=== PATIENT | female | born 1965 | race Caucasian/White ===

== ENCOUNTER → 2016-10-13 | Outpatient (CLI) | payer BC ==
--- NOTE | 2016-10-13 12:41 | DI ---
RIGHT ANKLE, 10/13/2016 10:44 AM: Clinical History: Stiffness of the right ankle joint. Status post ORIF for a bimalleolar fracture. Previous Exam: 02/29/2016; 03/07/2016; 03/24/2016; 04/18/2016; 05/16/2016; and 06/10/2016. 3 views are submitted. The patient is status post ORIF of a fracture of the medial malleolus and the fracture site has healed. There is a distal fibular fracture that although there is still a fracture lucency present, there is extensive callus formation bridging the fracture site indicating it is heal ed. There is a defect in the distal fibula and tibia corresponding to previous placement of a syndesm otic screw. There is mild to moderate narrowing of the joint space without evidence of an osteochondr al defect. A small anterior joint effusion is present. Readin. Status post ORIF of the fracture of the medial malleolus with a fracture of the distal fibula. Guillermo th fractures have healed with anatomic alignment and position. 2. There is a small joint effusion anteriorly and there is mild to moderate narrowing of the joint s pace without evidence of an osteochondral defect.
== END ==
LOC: ORTHO 09:29
PROVIDERS: ATTEND Orthopaedic Surgery
DX: M25.572 Pain in left ankle and joints of left foot (principal); M25.671 Stiffness of right ankle, not elsewhere classified; M25.471 Effusion, right ankle; Z98.890 Other specified postprocedural states
CPT/HCPCS: 73610

== ENCOUNTER → 2016-12-02 | Outpatient (CLI) | payer BC ==
--- NOTE | 2016-12-02 15:08 | DI ---
DIAGNOSTIC MAMMOGRAMS, 12/02/2016 1:54 PM: Clinical History: Palpable lump in the left breast. Prior Exam: None at this facility. The patient indicated that she has had a prior mammogram in [facility] [place], [place]. We have requested the prior study. A supplemental report will be issued upon receipt of that prior exam. Routine digital MLO and CC 2-D images of each breast are supplemented with digital tomosynthesis scan s of the left breast. C-View images are obtained in the same projections as in the screening exam. C AD review is also performed. Breast tissue density is rated as having scattered areas of fibroglandular breast tissue. In the left breast in the upper inner quadrant close to the 9:00 position is a 25 mm multilobulated and spiculat ed high density mass. Faint calcifications are visible within the lesion. There is no mass of the rig ht breast. No other abnormal calcifications are noted. The skin contours, nipples, and lower axillary regions are also normal. Follow Up: Breast ultrasound is pending. BIRADS Category: 4: Suspicious finding - biopsy should be considered. The screening Views of the righ t breast are negative. Assessment: Suspicious finding. Biopsy should be considered.
--- NOTE | 2016-12-02 16:23 | DI ---
LEFT BREAST ULTRASOUND, 12/02/2016 1:54 PM: Clinical History: Left breast lump. Abnormal mammogram confirming presence of a 26 mm high density mu ltilobulated and spiculated lesion in the upper inner quadrant close to the 9:00 position. Scans are performed by the technologist and myself through all four quadrants of the left breast with the high resolution linear array probe. Color Doppler ultrasound was also performed. There is an inhomogeneous hypoechoic and relatively well demarcated multilobulated mass measuring up to 26 mm in greatest dimension. Some spiculations are present. Along the medial margin of the lesion is a second smaller nodular lesion that measures 5 mm in diameter and probably is directly connected to the main lesion rather than representing a separate lesion. Color Doppler ultrasound confirms vasc ularity within the lesion. Follow Up: Surgical consultation with needle core biopsy of the lesion is recommended. BIRADS Category: 4: Suspicious finding - biopsy should be considered. Assessment: Suspicious finding. Biopsy should be considered.
--- NOTE | 2016-12-03 17:29 | DI ---
See the diagnostic mammogram report dated 12/02/2016 for description of the digital breast tomosynthes is phase of this exam.
== END ==
LOC: US 13:40
PROVIDERS: ATTEND Student in an Organized Health Care Education/Training Program
DX: N63 Unspecified lump in breast (principal)
CPT/HCPCS: 76641; G0204; G0279

== ENCOUNTER → 2016-12-03 | Day surgery (SDC) | payer BC ==
--- NOTE | 2016-12-03 13:33 | GEN.OPNOTE ---
Operative Note Surgery Date: 12/03/16 Preoperative Diagnosis: Left breast mass. Postoperative Diagnosis: Left breast mass. Procedure: Percutaneous core biopsy of left breast mass using ultrasound guidance. Surgeon: Josué Darnell MD Anesthesia Type: Local (1% plain lidocaine.) Estimated Blood Loss (mL): 2 Fluids: No fluids given. Pathology: 2 core biopsies sent for pathologic analysis. Indications: Worrisome left breast mass. Findings: Left breast mass. Complications: None. Operative Summary: I met with the patient and the radiologist in the ultrasound suite. The lesion was initially localized. The chest wall was prepped with ChloraPrep. The skin was infiltrated with 1% Xylocaine with epinephrine. The tract was infiltrated with local anesthetic as well. An 11 blade was used to make a small skin incision. I chose a 14-gauge core biopsy needle. This was advanced to the lesion. The device was closed and fired. I obtained 2 excellent cores. We could see the needle passed through the suspect lesion. The radiologist held pressure for 10 minutes. Follow-up ultrasound showed no hematoma formation. The chest wall was cleansed. A Band-Aid was placed. I personally prepared the specimen and the paperwork. I delivered the specimen to the lab. Patient tolerated the procedure well without complication. She will be discharged home. She has been asked to call the office and schedule an appointment for early next week.
--- NOTE | 2016-12-03 17:22 | DI ---
ULTRASOUND GUIDED LEFT BREAST NEEDLE CORE BIOPSY, 12/03/2016 12:13 PM Clinical History: Abnormal diagnostic mammogram and breast ultrasound showing a 26 mm left breast mas s. Previous Exam: 12/02/2016. Operating Surgeon: Dr. Josué Darnell. Weld Lay Out Worker: Dr. Scruggs. Informed signed consent was obtained prior to the procedure which was performed in the ultrasound sigrid te. A "time out" session was performed to verify the patient's name and date of prior to initia ting this procedure. The left breast was prepped with ChloraPrep with Tint. Sterile ultrasound gel wa s used as the acoustical coupling agent. 1% lidocaine without epinephrine was used for intradermal an d subcutaneous local anesthesia. A small skin incision was made with a #11 Bard-Oj blade. 2 passe s were performed using a 14 gauge needle and the DeliRadio-Oj biopsy gun. Both attempts resulted in go od core specimens being obtained. The biopsy specimens were delivered by the surgeon to the lab for d elivery to pathology. Hemostasis was achieved with direct compression for 11 minutes. Post biopsy rochelle ges show no evidence of post biopsy bleeding. A band aid dressing was applied and the patient was dis charged from the Radiology Department in stable, unchanged condition. The patient was advised to watc h for signs of a developing hematoma (including but not limited to swelling and pain in the breast) a s well as for signs of an infection (including but not limited to redness, swelling, fever). She was instructed to either contact the surgeon directly or to report to the Emergency Room immediately if p roblems arose. Reading: Successful and uncomplicated needle core biopsy of the left breast lesion as above.
== END | disposition home or self-care (01) ==
LOC: SDSC 11:58
PROVIDERS: ATTEND Surgery
DX: N63 Unspecified lump in breast (principal); C50.912 Malignant neoplasm of unspecified site of left female breast
CPT/HCPCS: 19083; 76942

== ENCOUNTER 2016-12-12 07:32 | Day surgery (SDC) | payer BC ==
[~2016-12-12 07:32] MED LIST: LIDOCAINE W/ SODIUM BICARB 0.5 ML SYR ONE; Lactated Ringers 1,000 ML PRIMARY IV ONE; ceFAZolin Inj 2gm (Premix) 50 ML IV ONE
[2016-12-12] MEDS ORDERED: PROPOFOL 10 MG/1 ML (200 MG/20 ML) VIAL IV ONE (07:35)
[2016-12-12] MEDS ORDERED: LIDOCAINE MPF 2% - 5 ML (20 MG/1 ML) IV ONE (07:35)
[2016-12-12] MEDS ORDERED: MIDAZOLAM 5 MG/1 ML IVP ONE (07:35)
[2016-12-12] MEDS ORDERED: fentaNYL Inj 250 MCG/5 ML VIAL IVP ONE (07:35)
[2016-12-12] MEDS ORDERED: fentaNYL Inj 100 MCG/2 ML VIAL ONE (08:37)
[2016-12-12] MEDS ORDERED: LIDOCAINE W/ SODIUM BICARB 0.5 ML SYR SUBD ONE (08:52)
[2016-12-12] MEDS ORDERED: BUPIVACAINE 0.5% W/ EPI - 10 ML VIAL ONE ×2 (10:01→11:52)
[2016-12-12] MEDS ORDERED: METHYLENE BLUE 10 MG/1 ML - 1 ML ONE (10:15)
[2016-12-12] MEDS ORDERED: DEXAMETHASONE PF 10 MG/1 ML VIAL ONE (10:22)
[2016-12-12] MEDS ORDERED: ONDANSETRON 4 MG/2 ML VIAL ONE (10:22)
[2016-12-12] MEDS ORDERED: Lactated Ringers 1,000 ML PRIMARY IV ONE (10:27)
[2016-12-12] MEDS ORDERED: Sodium Chloride 0.9% vial 10 ML ONE (10:40)
[2016-12-12] MEDS ORDERED: KETAMINE 100 MG/1 ML - 5 ML IV ONE (10:55)
[2016-12-12] MEDS ORDERED: NORMAL SALINE 10 ML SYRINGE FLUSH IVP PRN ×2 (11:12→13:22)
[2016-12-12] MEDS ORDERED: Prochlorperazine Edisylate Inj 10mg/2ml vial IVP PRN (11:12)
[2016-12-12] MEDS ORDERED: HYDROmorphone 2 MG/1 ML IVP PRN (11:12)
[2016-12-12] MEDS ORDERED: MIDAZOLAM HCL 50 MG/10 ML VIAL IVP PRN (11:12)
[2016-12-12] MEDS ORDERED: Lactated Ringers 1,000 ML PRIMARY IV SCH ×2 (11:15→13:30)
[2016-12-12] MEDS ORDERED: HYDROmorphone 2 MG/1 ML IVP ONE (11:51)
[2016-12-12] MEDS ORDERED: KETOROLAC 30 MG/1 ML VIAL IVP ONE (12:06)
[2016-12-12] MEDS: HYDROmorphone 2 MG/1 ML ONE ×2 (12:45→13:05)
--- NOTE | 2016-12-12 12:53 | GEN.OPNOTE ---
Operative Note Surgery Date: 12/12/16 Preoperative Diagnosis: Left breast cancer. Postoperative Diagnosis: Left breast cancer. Procedure: #1 partial mastectomy. #2 excision of deep axillary lymph nodes. # 3 injection procedure for lymph node identification-methylene blue. Surgeon: Josué Darnell MD Anesthesia Provider: Esteban Larkin CRNA Anesthesia Type: General Estimated Blood Loss (mL): 5 Fluids: 1400 mL of crystalloid. 2 g of IV Ancef at the start of the procedure. 30 mg of IV Toradol at the end of the procedure. Pathology: Specimens to pathology included #1 a sentinel node, #2 other axillary lymph nodes, #3 lumpectomy specimen, #4 inferior margin from the lumpectomy cavity. Indications: Newly diagnosed breast cancer. Options were discussed. Patient chose breast conservation therapy. Findings: Independence node identified both with the isotope and the methylene blue dye. Breast cancer was palpable. Surgically clear margins of excision but the inferior margin was close so I opted to take more of the cavity wall. Complications: None. Operative Summary: The patient was taken to the operating suite and placed on the operating table in the supine position. Following the induction of general anesthetic the left arm was placed on an arm board and the left chest wall, axilla and proximal arm were prepped and draped in a sterile fashion. A surgical timeout was done. I injected some methylene blue in the periareolar area and massaged the breast. An axillary incision was made over the area of maximum counts. The counts in the axilla were not greater then 10% of the injection site count initially. The dissection was carried down through the clavipectoral fascial and the axillary space was entered. The probe was utilized to localize the node. It was also identified with the methylene blue. In vivo counts were greater than 10% of the injection site counts as were ex vivo counts. The sentinel node was removed. Several other lymph nodes next to the sentinel node were also removed. Those contents were labeled additional left axillary contents. Clips were used to secure the small vessels and the lymphatics as the lymph nodes were removed. The wound was irrigated. Hemostasis was assured. Final irrigation was 1/2% Marcaine with epinephrine which is allowed to sit the wound for several minutes and then removed. The deep dermis was closed with inverted interrupted 3-0 Vicryl suture. The skin was closed with running subcuticular 4- 0 Prolene followed by covering the incision site with a 1010 drape. All gowns and gloves were changed. Separate set of instruments was used for the next portion of the procedure. Attention was turned to the partial mastectomy. An ellipse of skin, to include the prior core biopsy site, over the tumor was excised This was carried down through the subcutaneous tissue to its the mass. Wide local excision was accomplished using electrocautery. The specimen was removed with the skin intact. It was labeled with a short stitch superior and long stitch laterally or at the nipple areolar margin. The tumor was in the left upper inner quadrant. The deep margin was marked with ink. I felt the tumor was clear surgically but it was closest at the inferior margin. A section of the biopsy cavity was excised for a new inferior margin. The new margin was marked with ink. The wound was irrigated. Hemostasis was assured. Final irrigation was 10 mL of 1/2% Marcaine with epinephrine. The deep dermis was closed with 3-0 Vicryl. The skin was closed with running subcuticular 4-0 Prolene. Both incisions were then treated with Mastisol, Steri-Strips and an appropriate dressing. Patient tolerated all aspects of the procedure well without complication. She was taken to the recovery area in stable condition. All counts were correct.
[2016-12-12] MEDS ORDERED: Nalbuphine Inj 20 MG/ML Ampule ONE (12:59)
[2016-12-12] MEDS ORDERED: HYDROcodone-APAP 5 MG -325 MG TABLET PO PRN (13:22)
[2016-12-12] MEDS ORDERED: ONDANSETRON 4 MG/2 ML VIAL IVP PRN (13:22)
[2016-12-12] MEDS ORDERED: MORPHINE SULFATE 2 MG/1 ML IVP PRN (13:22)
[2016-12-12] MEDS ORDERED: HYDROcodone-APAP 5 MG -325 MG TABLET PO ONE (14:10)
[2016-12-12 14:36] VITALS: RESP 18
--- NOTE | 2016-12-12 14:47 | DI ---
NM LYMPHOSCINTIGRAPHY,12/12/2016 8:34 AM: Clinical History: Left-sided breast cancer. Previous Exam: Ultrasound core biopsy performed December 03, 2016 Radiopharmaceutical: A total of 0.840 ?Ci of technetium 90 9M sulfur colloid were administered subcut aneously into 5 separate equal doses along the left lateral areola from the 12:00 to 6:00 position. Procedure: Risks benefits and alternatives were explained to the patient and informed written consent obtained. The patient was placed supine on the fluoroscopy table and the left breast prepped and draped in usua l sterile fashion. 1% buffered lidocaine was used for local anesthesia after which, the radiopharmace utical was administered to the lateral left areola as above. Findings: Anterior spectroscopy is performed at 15 minutes 30 minutes and 45 minutes after the injection, and d emonstrates increased activity within the left axilla. Impression: Successful left breast sulfur colloid injection.
[2016-12-12 16:24] VITALS: TEMP 98
== END 2016-12-12 15:00 | disposition home or self-care (01) ==
LOC: SDSC 07:32
PROVIDERS: ATTEND Surgery
DX: C50.212 Malignant neoplasm of upper-inner quadrant of left female breast (principal)
CPT/HCPCS: 19302; 38790; 78195; A4216; A9541; J0690; J1885; J2300; J2704; J3010 ×2; J1100; J1170; J2001; J2250; J2405; J7120

== ENCOUNTER → 2016-12-25 | Outpatient (CLI) | payer BC ==
[2016-12-25 10:36] LABS: BASOPHILS % (AUTO) 1.1 % (0-1); EOSINOPHILS % (AUTO) 2.2 % (0-8); HEMATOCRIT 44.6 % (37.0-47.0); HEMOGLOBIN 14.7 g/dL (12.0-16.0); LYMPHOCYTES # (AUTO) 2.57 10*3/uL; MEAN CORPUSCULAR HEMOGLOBIN 30.9 PG (27-31); MEAN CORPUSCULAR VOLUME 93.7 FL (81-99); MEAN PLATELET VOLUME 10.1 FL (7.4-12.2); MONOCYTES # (AUTO) 0.37 10*3/UL (0.3-0.8); MONOCYTES % (AUTO) 4.1 % (5-15); NEUTROPHILS # (AUTO) 5.72 10*3/UL; NEUTROPHILS % (AUTO) 63.5 % (50-80); RED BLOOD COUNT 4.76 10^6/uL (4.20-5.40)
[2016-12-25 10:52] LABS: PLATELET MORPHOLOGY COMMENT NORMAL MORPHOLOGY (NORM); RBC MORPHOLOGY COMMENT NORMAL MORPHOLOGY (NORM); WBC MORPHOLOGY COMMENT NORMAL MORPHOLOGY (NORM)
[2016-12-25 11:17] LABS: BLOOD UREA NITROGEN 14 mg/dL (7-22); CALCIUM 9.6 mg/dL (8.7-10.7); EST GLOMERULAR FILTRATION > 60 (>60 ml/min/1.73m(2)); SERUM ALBUMIN 4.5 g/dL (3.5-4.8)
== END ==
LOC: LAB 10:04
PROVIDERS: ATTEND Internal Medicine
DX: C50.919 Malignant neoplasm of unspecified site of unspecified female breast (principal)
CPT/HCPCS: 36415; 80053; 85025; 86300

== ENCOUNTER 2017-01-07 08:58 | Day surgery (SDC) | payer BC ==
[~2017-01-07 08:58] MED LIST changes: +HEPARIN 500 UNIT/5 ML SYRINGE FOR CENTRAL LINE IVP ONE; +HEPARIN ONE; +LIDOCAINE HCL 1%/EPI 1:100,000 - 20 ML VIAL ONE; +MIDAZOLAM 5 MG/1 ML ONE; +SODIUM BICARBONATE 8.4% - 50 ML VIAL ONE; +Sodium Chloride 0.9% 100 ML IV ONE; +fentaNYL Inj 250 MCG/5 ML VIAL ONE
[2017-01-07] MEDS ORDERED: Lactated Ringers 1,000 ML PRIMARY IV ONE (11:11)
--- NOTE | 2017-01-07 11:45 | GEN.OPNOTE ---
Operative Note Surgery Date: 01/07/17 Preoperative Diagnosis: Left breast cancer. Need for long-term venous access. Postoperative Diagnosis: Same. Procedure: Right subclavian PowerPort insertion. Surgeon: Josué Darnell MD Anesthesia Provider: Federico Rooney CRNA Anesthesia Type: Local (1% Xylocaine with epinephrine and sodium bicarbonate per Josué Darnell M.D.), MAC (Per the PIO.) Estimated Blood Loss (mL): 5 Fluids: 1 L crystalloid. 2 g of IV Ancef at the start of the procedure. Pathology: no pathologic specimens. Indications: Need for long-term venous access for chemotherapy. Findings: Smooth course of the catheter through the subclavian vein into the superior vena cava. Complications: none. Operative Summary: The patient was taken to the operating suite and placed on the operating table in the supine position. A surgical timeout was done. Following the induction of adequate IV sedation the operative site was chosen and infiltrated with 1% Xylocaine with epinephrine and bicarbonate. I chose the right subclavian region as her tumor is on the left chest. A Cook needle was used to tunnel from the port site up to the subclavian vein. The needle was inserted into the subclavian vein. A guidewire was passed through the vein into the superior vena cava. Its position was confirmed with fluoroscopy. An incision was made on the chest wall. A subcutaneous pocket was developed. A power port was chosen. The catheter was cut to 18 cm. The device was put together in the normal fashion and flushed with heparinized saline. A peel- away sheath and dilator were passed over the guidewire. The guidewire and dilator were removed. The catheter was passed through the peel-away sheath into the superior vena cava. The peel-away sheath was removed. The port was placed into the chest wall pocket. Fluoroscopy confirmed a smooth course of the catheter throughout. The tip was in the superior vena cava. There was no evidence of a pneumothorax. The device was flushed initially with 10 units of heparin per cc flush. Final flush was with 10 mL of 100 units of heparin per cc flush. The deep dermis was closed with inverted interrupted 3-0 Vicryls. The skin was closed with running subcuticular 4-0 Monocryl. This was followed by Mastisol, Steri-Strips, and an OpSite dressing. A sandbag was placed on the operative site. The patient tolerated the procedure well without complication. She was taken to the outpatient surgery in stable condition. All counts were correct. Final chest x-ray shows the catheter tip in the superior vena cava. There is no evidence of a pneumothorax. The catheter may be used for its intended purpose.
[2017-01-07] MEDS ORDERED: HYDROcodone-APAP 5 MG -325 MG TABLET PO PRN (11:55)
[2017-01-07] MEDS ORDERED: KETOROLAC 30 MG/1 ML VIAL IVP ONE (12:00)
[2017-01-07] MEDS ORDERED: HYDROcodone-APAP 5 MG -325 MG TABLET PO ONE (12:10)
[2017-01-07] MEDS ORDERED: KETOROLAC 30 MG/1 ML VIAL ONE (12:10)
[2017-01-07 13:49] VITALS: RESP 18; TEMP 97
--- NOTE | 2017-01-07 14:53 | DI ---
HISTORY: Line placement. FINDINGS: The heart is in the upper limits of normal with right subclavian venous catheter in positi on. The lung az[place] are essentially clear. IMPRESSION: 1. Right subclavian line tip in position. 2. No acute cardiopulmonary pathology identified.
--- NOTE | 2017-01-08 11:15 | DI ---
C-ARM FLUOROSCOPY OF THE CHEST, 01/07/2017 10:00 AM : Clinical History: Breast cancer. The patient needs long-term IV access. Verification of catheter plac ement. Previous Exam: None at this facility. A single spot film is submitted. The film shows the catheter is inserted from the right subclavian ap proach and the catheter tip is in the superior vena cava. There is no obvious pneumothorax. Reading: The catheter is in the superior vena cava without evidence of an obvious pneumothorax.
== END 2017-01-07 12:38 | disposition home or self-care (01) ==
LOC: SDSC 08:58
PROVIDERS: ATTEND Surgery
DX: C50.212 Malignant neoplasm of upper-inner quadrant of left female breast (principal)
CPT/HCPCS: 36561; 71010; 76000; J0690; J1885; J2704; J3010; J1644; J2250; J7050; J7120

== ENCOUNTER → 2017-01-09 | Outpatient (CLI) | payer BC ==
[2017-01-09 14:56] LABS: BASOPHILS # (AUTO) 0.04 10*3/UL; BASOPHILS % (AUTO) 0.4 % (0-1); EOSINOPHILS # (AUTO) 0.41 10*3/UL; EOSINOPHILS % (AUTO) 4.5 % (0-8); HEMATOCRIT 42.6 % (37.0-47.0); HEMOGLOBIN 13.9 g/dL (12.0-16.0); LYMPHOCYTES # (AUTO) 1.96 10*3/uL; MEAN CORPUSCULAR HEMOGLOBIN 30.6 PG (27-31); MEAN CORPUSCULAR HGB CONC 32.6 g/dL (33-37); MEAN CORPUSCULAR VOLUME 93.8 FL (81-99); MEAN PLATELET VOLUME 9.9 FL (7.4-12.2); MONOCYTES # (AUTO) 0.54 10*3/UL (0.3-0.8); NEUTROPHILS % (AUTO) 67.3 % (50-80); RED BLOOD COUNT 4.54 10^6/uL (4.20-5.40)
[2017-01-09 15:32] LABS: BUN/CREATININE RATIO 7.05 (6-20); SERUM ALBUMIN 4.5 g/dL (3.5-4.8)
[2017-01-09 17:08] LABS: PLATELET MORPHOLOGY COMMENT NORMAL MORPHOLOGY (NORM); RBC MORPHOLOGY COMMENT NORMAL MORPHOLOGY (NORM); WBC MORPHOLOGY COMMENT NORMAL MORPHOLOGY (NORM)
== END ==
LOC: LAB 14:39
PROVIDERS: ATTEND Dermatology
DX: C50.912 Malignant neoplasm of unspecified site of left female breast (principal)
CPT/HCPCS: 36415; 80053; 85025